=== PATIENT | male | born 1970 | race Caucasian/White ===

== ENCOUNTER 2021-08-29 15:36 | Inpatient (IN) | payer OTHER ==
[2021-08-29 16:22] VITALS: BMI 26.5
[2021-08-29] MEDS ORDERED: MAGNESIUM CITRATE 300 ML BOTTLE PO PRN (17:00)
[2021-08-29] MEDS ORDERED: MAG HYDROX/AL HYDROX/SIMETH 30 ML UNIT-DOSE CUP PO PRN (17:00)
[2021-08-29] MEDS ORDERED: BENZOCAINE/MENTHOL (CHLORASEPTIC ) LOZENGE MM PRN (17:00)
[2021-08-29] MEDS ORDERED: DICYCLOMINE HCL 10 MG CAPSULE PO PRN (17:00)
[2021-08-29] MEDS ORDERED: diazePAM 5 MG TABLET PO PRN (17:00)
[2021-08-29] MEDS ORDERED: diazePAM 5 MG TABLET PO ONE (17:00)
[2021-08-29] MEDS ORDERED: MAGNESIUM HYDROX 2400MG/30ML ORAL SUSPENSION 30 ML CUP PO PRN (17:00)
[2021-08-29] MEDS ORDERED: LOPERAMIDE HCL 2 MG CAPSULE PO PRN (17:00)
[2021-08-29] MEDS ORDERED: BISMUTH SUBSALICYLATE 524 MG/30 ML PO PRN (17:00)
[2021-08-29] MEDS ORDERED: ONDANSETRON *ODT* 4 MG TABLET SL PRN (17:00)
[2021-08-29] MEDS ORDERED: ACETAMINOPHEN 325 MG TABLET (FP) PO PRN ×2 (17:00)
[2021-08-29] MEDS: THIAMINE HCL 100 MG TABLET (FP) PO SCH (22:13)
[2021-08-29] MEDS: MELATONIN 5 MG TABLETS PO SCH (22:13)
[2021-08-29] MEDS: METHOCARBAMOL 500 MG TABLET PO PRN (22:13)
[2021-08-29] MEDS: diazePAM 5 MG TABLET PO SCH (22:14)
[2021-08-30] MEDS: diazePAM 5 MG TABLET PO SCH ×4 (05:34→22:02)
[2021-08-30] MEDS: PRENATAL VITAMINS W/ FOLIC ACID TABLET (FP) PO SCH (10:25)
[2021-08-30] MEDS: METHOCARBAMOL 500 MG TABLET PO PRN (10:26)
[2021-08-30 10:55] LABS: HEMATOCRIT 39.4 % (35.4-49); HEMOGLOBIN 13.2 GM/dL (11.7-16.9); MCH 29.9 pg (25.7-33.7); MCHC 33.4 g/dl (32.0-35.9); MEAN CELL VOLUME 89.6 fl (80-96); MEAN PLT VOLUME 8.5 fl (7.5-11.1); PLATELET COUNT 226 10^3/uL (134-434); RDW 18.7 % (11.9-15.9); WHITE BLOOD COUNT 5.3 K/mm3 (4.0-10.0)
[2021-08-30 11:00] LABS: BLOOD UREA NITROGEN 13.3 mg/dL (7-18)
[2021-08-30 11:03] LABS: ALBUMIN 3.3 g/dl (3.4-5.0); CREATININE 0.8 mg/dL (0.55-1.3)
[2021-08-30 11:04] LABS: BILIRUBIN,TOTAL 0.8 mg/dL (0.2-1)
[2021-08-30 11:05] LABS: TOT PROT 6.6 g/dl (6.4-8.2)
[2021-08-30] MEDS: IBUPROFEN 400 MG TABLET (FP) PO PRN (17:40)
[2021-08-30] MEDS: MELATONIN 5 MG TABLETS PO SCH (22:05)
[2021-08-31] MEDS: THIAMINE HCL 100 MG TABLET (FP) PO SCH ×2 (00:05→22:09)
[2021-08-31] MEDS: diazePAM 5 MG TABLET PO SCH ×2 (05:54→13:48)
[2021-08-31] MEDS: PRENATAL VITAMINS W/ FOLIC ACID TABLET (FP) PO SCH (10:13)
[2021-08-31] MEDS: IBUPROFEN 400 MG TABLET (FP) PO PRN ×2 (10:14→22:11)
[2021-08-31 10:29] LABS: PH,URINE 6.5 (5.0-8.0); URINE APPEARANCE CLEAR; URINE BILIRUBIN NEGATIVE (NEGATIVE); URINE COLOR YELLOW; URINE GLUCOSE (UA) NEGATIVE (NEGATIVE); URINE KETONE NEGATIVE (NEGATIVE); URINE LEUK ESTERASE NEGATIVE (NEGATIVE); URINE NITRITE NEGATIVE (NEGATIVE); URINE PROTEIN NEGATIVE (NEGATIVE); URINE UROBILINOGEN 0.2 mg/dL (0.2-1.0)
[2021-08-31] MEDS ORDERED: diazePAM 5 MG TABLET PO SCH (22:00)
[2021-08-31] MEDS: valACYclovir HCL 500 MG TABLET (FP) PO SCH (22:08)
[2021-08-31] MEDS: MELATONIN 5 MG TABLETS PO SCH (22:09)
[2021-09-01] MEDS ORDERED: diazePAM 5 MG TABLET PO SCH (06:00)
[2021-09-01] MEDS: PRENATAL VITAMINS W/ FOLIC ACID TABLET (FP) PO SCH (10:08)
[2021-09-01] MEDS: valACYclovir HCL 500 MG TABLET (FP) PO SCH (10:08)
[2021-09-01] MEDS: METHOCARBAMOL 500 MG TABLET PO PRN (10:08)
[2021-09-01 13:56] VITALS: BP 136/78; PULSE 96; TEMP 97.7
[2021-09-02] MEDS ORDERED: diazePAM 5 MG TABLET PO ONE (06:00)
== END 2021-09-01 14:05 | disposition other institution (70) | DRG 774 ==
LOC: YASAS 15:36 → Y6N 18:31
PROVIDERS: ADMIT Allergy & Immunology; ATTEND Surgery
PROC: HZ2ZZZZ Detoxification Services for Substance Abuse Treatment (ICD-10-PCS; principal; 2021-08-29)
DX: F10.230 Alcohol dependence with withdrawal, uncomplicated (principal); F14.20 Cocaine dependence, uncomplicated; F43.10 Post-traumatic stress disorder, unspecified; K64.9 Unspecified hemorrhoids; R30.0 Dysuria; Z87.891 Personal history of nicotine dependence; Z86.19 Personal history of other infectious and parasitic diseases; Z88.8 Allergy status to other drugs, medicaments and biological substances
CPT/HCPCS: 36415; 80053; 81003; 85027; 86593; 86780; 93005; 93010; C9803-CS; U0003; U0005

== ENCOUNTER 2021-09-01 14:18 | Inpatient (IN) | payer OTHER ==
[2021-09-01] MEDS ORDERED: MAG HYDROX/AL HYDROX/SIMETH 30 ML UNIT-DOSE CUP PO PRN (15:55)
[2021-09-01] MEDS ORDERED: P-EPHED 60MG/TRIPROLIDI 2.5MG TABLET PO PRN (15:55)
[2021-09-01] MEDS ORDERED: BENZOCAINE/MENTHOL (CHLORASEPTIC ) LOZENGE MM PRN (15:55)
[2021-09-01] MEDS ORDERED: MAGNESIUM HYDROX 2400MG/30ML ORAL SUSPENSION 30 ML CUP PO PRN (15:55)
[2021-09-01] MEDS ORDERED: ACETAMINOPHEN 325 MG TABLET (FP) PO PRN (15:55)
[2021-09-01] MEDS ORDERED: IBUPROFEN 400 MG TABLET (FP) PO PRN (15:55)
[2021-09-01] MEDS ORDERED: MAGNESIUM CITRATE 300 ML BOTTLE PO PRN (15:55)
[2021-09-01] MEDS ORDERED: LOPERAMIDE HCL 2 MG CAPSULE PO PRN (15:55)
[2021-09-01] MEDS ORDERED: guaiFENesin 200 MG/10 ML 10 ML UNIT-DOSE CUPS PO PRN (15:55)
[2021-09-01] MEDS: valACYclovir HCL 500 MG TABLET (FP) PO SCH (21:09)
[2021-09-01] MEDS: THIAMINE HCL 100 MG TABLET (FP) PO SCH (21:10)
[2021-09-01] MEDS: MELATONIN 5 MG TABLETS PO SCH (21:10)
[2021-09-02] MEDS: valACYclovir HCL 500 MG TABLET (FP) PO SCH ×2 (10:08→21:05)
[2021-09-02] MEDS: PRENATAL VITAMINS W/ FOLIC ACID TABLET (FP) PO SCH (10:08)
[2021-09-02] MEDS: THIAMINE HCL 100 MG TABLET (FP) PO SCH (21:05)
[2021-09-02] MEDS: hydrOXYzine PAMOATE 25 MG CAPSULE (FP) PO PRN (21:05)
[2021-09-02] MEDS: MELATONIN 5 MG TABLETS PO SCH (21:05)
[2021-09-03] MEDS: PRENATAL VITAMINS W/ FOLIC ACID TABLET (FP) PO SCH (09:44)
[2021-09-03] MEDS: valACYclovir HCL 500 MG TABLET (FP) PO SCH ×2 (09:44→21:26)
[2021-09-03] MEDS: THIAMINE HCL 100 MG TABLET (FP) PO SCH (21:25)
[2021-09-03] MEDS: MELATONIN 5 MG TABLETS PO SCH (21:25)
[2021-09-03] MEDS: hydrOXYzine PAMOATE 25 MG CAPSULE (FP) PO PRN (21:26)
[2021-09-04] MEDS: PRENATAL VITAMINS W/ FOLIC ACID TABLET (FP) PO SCH (09:38)
[2021-09-04] MEDS: valACYclovir HCL 500 MG TABLET (FP) PO SCH ×2 (09:38→21:06)
[2021-09-04] MEDS: THIAMINE HCL 100 MG TABLET (FP) PO SCH (21:06)
[2021-09-04] MEDS: hydrOXYzine PAMOATE 25 MG CAPSULE (FP) PO PRN (21:06)
[2021-09-04] MEDS: MELATONIN 5 MG TABLETS PO SCH (21:06)
[2021-09-05] MEDS: valACYclovir HCL 500 MG TABLET (FP) PO SCH ×2 (09:45→21:08)
[2021-09-05] MEDS: PRENATAL VITAMINS W/ FOLIC ACID TABLET (FP) PO SCH (09:45)
[2021-09-05] MEDS: THIAMINE HCL 100 MG TABLET (FP) PO SCH (21:09)
[2021-09-05] MEDS: hydrOXYzine PAMOATE 25 MG CAPSULE (FP) PO PRN (21:09)
[2021-09-05] MEDS: MELATONIN 5 MG TABLETS PO SCH (21:09)
[2021-09-06] MEDS: PRENATAL VITAMINS W/ FOLIC ACID TABLET (FP) PO SCH (09:44)
[2021-09-06] MEDS: valACYclovir HCL 500 MG TABLET (FP) PO SCH ×2 (09:44→21:14)
[2021-09-06] MEDS: hydrOXYzine PAMOATE 25 MG CAPSULE (FP) PO PRN (21:14)
[2021-09-06] MEDS: THIAMINE HCL 100 MG TABLET (FP) PO SCH (21:14)
[2021-09-06] MEDS: MELATONIN 5 MG TABLETS PO SCH (21:14)
[2021-09-07] MEDS: PRENATAL VITAMINS W/ FOLIC ACID TABLET (FP) PO SCH (10:03)
[2021-09-07] MEDS ORDERED: PENICILLIN G BENZATHINE 1,200,000 UNIT/2 ML PFS IM ONE (11:27)
[2021-09-07] MEDS: hydrOXYzine PAMOATE 25 MG CAPSULE (FP) PO PRN (21:05)
[2021-09-07] MEDS: MELATONIN 5 MG TABLETS PO SCH (21:05)
[2021-09-07] MEDS: THIAMINE HCL 100 MG TABLET (FP) PO SCH (21:05)
[2021-09-08] MEDS: PRENATAL VITAMINS W/ FOLIC ACID TABLET (FP) PO SCH (09:49)
[2021-09-08] MEDS: MELATONIN 5 MG TABLETS PO SCH (21:30)
[2021-09-08] MEDS: hydrOXYzine PAMOATE 25 MG CAPSULE (FP) PO PRN (21:30)
[2021-09-08] MEDS: THIAMINE HCL 100 MG TABLET (FP) PO SCH (21:30)
[2021-09-09] MEDS: PRENATAL VITAMINS W/ FOLIC ACID TABLET (FP) PO SCH (09:50)
[2021-09-09] MEDS: THIAMINE HCL 100 MG TABLET (FP) PO SCH (21:00)
[2021-09-09] MEDS: hydrOXYzine PAMOATE 25 MG CAPSULE (FP) PO PRN (21:00)
[2021-09-09] MEDS: MELATONIN 5 MG TABLETS PO SCH (21:00)
[2021-09-10] MEDS: PRENATAL VITAMINS W/ FOLIC ACID TABLET (FP) PO SCH (10:07)
[2021-09-10] MEDS: hydrOXYzine PAMOATE 25 MG CAPSULE (FP) PO PRN (21:09)
[2021-09-10] MEDS: MELATONIN 5 MG TABLETS PO SCH (21:09)
[2021-09-10] MEDS: THIAMINE HCL 100 MG TABLET (FP) PO SCH (21:09)
[2021-09-11] MEDS: PRENATAL VITAMINS W/ FOLIC ACID TABLET (FP) PO SCH (10:07)
[2021-09-11] MEDS: MELATONIN 5 MG TABLETS PO SCH (21:06)
[2021-09-11] MEDS: THIAMINE HCL 100 MG TABLET (FP) PO SCH (21:06)
[2021-09-11] MEDS: hydrOXYzine PAMOATE 25 MG CAPSULE (FP) PO PRN (21:06)
[2021-09-12] MEDS: MELATONIN 5 MG TABLETS PO SCH (21:05)
[2021-09-12] MEDS: hydrOXYzine PAMOATE 25 MG CAPSULE (FP) PO PRN (21:05)
[2021-09-12] MEDS: THIAMINE HCL 100 MG TABLET (FP) PO SCH (21:05)
[2021-09-12] MEDS: PRENATAL VITAMINS W/ FOLIC ACID TABLET (FP) PO SCH (21:06)
[2021-09-13] MEDS: MELATONIN 5 MG TABLETS PO SCH (21:07)
[2021-09-13] MEDS: hydrOXYzine PAMOATE 25 MG CAPSULE (FP) PO PRN (21:08)
[2021-09-13] MEDS: PRENATAL VITAMINS W/ FOLIC ACID TABLET (FP) PO SCH (21:08)
[2021-09-13] MEDS: THIAMINE HCL 100 MG TABLET (FP) PO SCH (21:08)
[2021-09-14] MEDS ORDERED: PENICILLIN G BENZATHINE 2,400,000 UNIT/4 ML PFS IM ONE (10:00)
[2021-09-14] MEDS: hydrOXYzine PAMOATE 25 MG CAPSULE (FP) PO PRN (21:02)
[2021-09-14] MEDS: PRENATAL VITAMINS W/ FOLIC ACID TABLET (FP) PO SCH (21:02)
[2021-09-14] MEDS: MELATONIN 5 MG TABLETS PO SCH (21:02)
[2021-09-14] MEDS: THIAMINE HCL 100 MG TABLET (FP) PO SCH (21:03)
[2021-09-15 07:06] VITALS: BP 110/70; PULSE 58; TEMP 97.3
[2021-09-21] MEDS ORDERED: PENICILLIN G BENZATHINE 2,400,000 UNIT/4 ML PFS IM ONE (10:00)
== END 2021-09-15 09:32 | disposition home or self-care (01) | DRG 772 ==
LOC: YASAS 14:18 → Y3W 14:19
PROVIDERS: ADMIT Allergy & Immunology; ATTEND Psychiatry & Neurology Pain Medicine
PROC: HZ42ZZZ Group Counseling for Substance Abuse Treatment, Cognitive-Behavioral (ICD-10-PCS; principal; 2021-09-01)
DX: F10.20 Alcohol dependence, uncomplicated (principal); F14.20 Cocaine dependence, uncomplicated; G47.00 Insomnia, unspecified; Z20.2 Contact with and (suspected) exposure to infections with a predominantly sexual mode of transmission; Z88.8 Allergy status to other drugs, medicaments and biological substances; Z87.891 Personal history of nicotine dependence

== ENCOUNTER 2021-10-30 18:13 | Emergency (ER) | payer OTHER ==
[2021-10-30 18:44] VITALS: TEMP 97.9; BMI 25.8
[2021-10-30] MEDS ORDERED: ONDANSETRON 4 MG/2 ML VIAL IVPUSH ONE (18:47)
[2021-10-30] MEDS ORDERED: SODIUM CHLORIDE 0.9% 500 ML INFUS.BAG IV ONE ×2 (18:47→19:40)
[2021-10-30] MEDS ORDERED: ONDANSETRON 4 MG/2 ML VIAL ONE (18:47)
[2021-10-30 22:04] LABS: BASO % 1.3 % (0-2.0); EOS % 0.4 % (0-4.5); HEMOGLOBIN 13.5 GM/dL (11.7-16.9); MCH 30.6 pg (25.7-33.7); MCHC 33.7 g/dl (32.0-35.9); MEAN CELL VOLUME 90.9 fl (80-96); MONO % 4.9 % (3.8-10.2); NEUT % 64.4 % (42.8-82.8); PLATELET COUNT 179 10^3/uL (134-434); RDW 15.5 % (11.9-15.9); WHITE BLOOD COUNT 6.3 K/mm3 (4.0-10.0)
[2021-10-30 22:15] LABS: INR 0.94 (0.83-1.09); PROTHROMBIN TIME (PATIENT) 10.8 SEC (9.7-13.0)
[2021-10-30 22:17] LABS: ACTIVATED PTT 29.2 SECONDS (25.2-36.5)
[2021-10-30] MEDS ORDERED: ACETAMINOPHEN 1000 MG/100 ML BAG IVPB ONE (23:46)
[2021-10-30] MEDS ORDERED: ACETAMINOPHEN INJECTION 100 ML IVPB ONE (23:51)
[2021-10-31 00:12] VITALS: BP 109/62; PULSE 68; RESP 18
[2021-10-31 00:18] LABS: CALCIUM 7.8 mg/dL (8.5-10.1)
[2021-10-31 00:19] LABS: ALBUMIN 3.4 g/dl (3.4-5.0); BLOOD UREA NITROGEN 7.4 mg/dL (7-18)
[2021-10-31 00:22] LABS: CREATININE 0.7 mg/dL (0.55-1.3)
[2021-10-31 00:23] LABS: BILIRUBIN,TOTAL 0.6 mg/dL (0.2-1)
[2021-10-31 00:24] LABS: TOT PROT 6.6 g/dl (6.4-8.2)
== END 2021-10-31 00:35 | disposition home or self-care (01) ==
LOC: JER 18:13
PROC: 3E033NZ Introduction of Analgesics, Hypnotics, Sedatives into Peripheral Vein, Percutaneous Approach (ICD-10-PCS; principal; 2021-10-30)
PROC: 3E033GC Introduction of Other Therapeutic Substance into Peripheral Vein, Percutaneous Approach (ICD-10-PCS; 2021-10-30)
DX: F10.920 Alcohol use, unspecified with intoxication, uncomplicated (principal)
CPT/HCPCS: 36415; 70450-TC; 71045-TC-FY; 72125-TC; 80053; 80307; 82962; 83690; 84484; 85025; 85610; 85730; 86850; 86900; 86901; 93005; 93010; 99285-25

== ENCOUNTER 2021-10-31 01:41 | Inpatient (IN) | payer OTHER ==
[2021-10-31 03:32] VITALS: BMI 26.4
[2021-10-31] MEDS ORDERED: NALOXONE HCL (KLOXXADO) 8 MG SPRAY NS PRN (08:17)
[2021-10-31] MEDS ORDERED: ONDANSETRON *ODT* 4 MG TABLET SL PRN (08:17)
[2021-10-31] MEDS ORDERED: DICYCLOMINE HCL 10 MG CAPSULE PO PRN (08:17)
[2021-10-31] MEDS ORDERED: MAG HYDROX/AL HYDROX/SIMETH 30 ML UNIT-DOSE CUP PO PRN (08:17)
[2021-10-31] MEDS ORDERED: LOPERAMIDE HCL 2 MG CAPSULE PO PRN (08:17)
[2021-10-31] MEDS ORDERED: IBUPROFEN 600 MG TABLET (FP) PO PRN (08:17)
[2021-10-31] MEDS ORDERED: MAGNESIUM CITRATE 300 ML BOTTLE PO PRN (08:17)
[2021-10-31] MEDS ORDERED: BISMUTH SUBSALICYLATE 262 MG/15 ML BTL PO PRN (08:17)
[2021-10-31] MEDS ORDERED: IBUPROFEN 400 MG TABLET (FP) PO PRN (08:17)
[2021-10-31] MEDS ORDERED: chlordiazePOXIDE HCL 25 MG CAPSULE PO PRN (08:17)
[2021-10-31] MEDS ORDERED: MAGNESIUM HYDROX 2400MG/30ML ORAL SUSPENSION 30 ML CUP PO PRN (08:17)
[2021-10-31] MEDS ORDERED: BENZOCAINE/MENTHOL (CHLORASEPTIC ) LOZENGE MM PRN (08:17)
[2021-10-31] MEDS ORDERED: NICOTINE 10 MG CARTRIDGE (INHALER) IH PRN (08:17)
[2021-10-31] MEDS ORDERED: ACETAMINOPHEN 325 MG TABLET (FP) PO PRN (08:17)
[2021-10-31] MEDS ORDERED: hydrOXYzine PAMOATE 25 MG CAPSULE (FP) PO PRN (08:23)
[2021-10-31] MEDS ORDERED: hydrOXYzine PAMOATE 25 MG CAPSULE (FP) PO ONE (09:24)
[2021-10-31] MEDS ORDERED: chlordiazePOXIDE HCL 25 MG CAPSULE ONE (09:24)
[2021-10-31] MEDS: hydrOXYzine PAMOATE 25 MG CAPSULE (FP) PO SCH ×4 (09:27→22:18)
[2021-10-31] MEDS: PRENATAL VITAMINS W/ FOLIC ACID TABLET (FP) PO SCH (11:00)
[2021-10-31] MEDS: chlordiazePOXIDE HCL 25 MG CAPSULE PO SCH ×3 (11:01→22:18)
[2021-10-31 13:47] LABS: HEMATOCRIT 36.1 % (35.4-49); HEMOGLOBIN 12.3 GM/dL (11.7-16.9); MCH 31.1 pg (25.7-33.7); MCHC 34.2 g/dl (32.0-35.9); MEAN CELL VOLUME 90.9 fl (80-96); MEAN PLT VOLUME 8.3 fl (7.5-11.1); PLATELET COUNT 167 10^3/uL (134-434); RBC 3.97 M/mm3 (4.00-5.60); RDW 15.3 % (11.9-15.9); WHITE BLOOD COUNT 4.9 K/mm3 (4.0-10.0)
[2021-10-31 13:52] LABS: CALCIUM 7.6 mg/dL (8.5-10.1)
[2021-10-31 13:53] LABS: ALBUMIN 3.1 g/dl (3.4-5.0); BLOOD UREA NITROGEN 10.8 mg/dL (7-18)
[2021-10-31 13:55] LABS: CREATININE 0.7 mg/dL (0.55-1.3)
[2021-10-31 13:56] LABS: BILIRUBIN,TOTAL 0.5 mg/dL (0.2-1); TOT PROT 5.9 g/dl (6.4-8.2)
[2021-10-31] MEDS ORDERED: POTASSIUM CHLORIDE ORAL LIQUID 20 MEQ/15 ML PO ONE (15:19)
[2021-10-31] MEDS: THIAMINE HCL 100 MG TABLET (FP) PO SCH (22:17)
[2021-10-31] MEDS: POTASSIUM CHLORIDE ORAL LIQUID 20 MEQ/15 ML PO SCH (22:17)
[2021-10-31] MEDS: MELATONIN 5 MG TABLETS PO SCH (22:18)
[2021-11-01] MEDS: chlordiazePOXIDE HCL 25 MG CAPSULE PO SCH ×4 (05:55→22:35)
[2021-11-01] MEDS: hydrOXYzine PAMOATE 25 MG CAPSULE (FP) PO SCH ×5 (05:56→22:35)
[2021-11-01] MEDS: PRENATAL VITAMINS W/ FOLIC ACID TABLET (FP) PO SCH (10:40)
[2021-11-01] MEDS: POTASSIUM CHLORIDE ORAL LIQUID 20 MEQ/15 ML PO SCH ×2 (10:40→22:35)
[2021-11-01] MEDS: METHOCARBAMOL 500 MG TABLET PO PRN (10:40)
[2021-11-01 11:15] LABS: CALCIUM 8.7 mg/dL (8.5-10.1)
[2021-11-01] MEDS: THIAMINE HCL 100 MG TABLET (FP) PO SCH (22:35)
[2021-11-01] MEDS: MELATONIN 5 MG TABLETS PO SCH (22:36)
[2021-11-02] MEDS: hydrOXYzine PAMOATE 25 MG CAPSULE (FP) PO SCH ×5 (05:27→22:15)
[2021-11-02] MEDS: chlordiazePOXIDE HCL 25 MG CAPSULE PO SCH ×4 (05:28→22:14)
[2021-11-02] MEDS: PRENATAL VITAMINS W/ FOLIC ACID TABLET (FP) PO SCH (10:27)
[2021-11-02] MEDS: METHOCARBAMOL 500 MG TABLET PO PRN ×2 (10:28→22:15)
[2021-11-02] MEDS: THIAMINE HCL 100 MG TABLET (FP) PO SCH (22:15)
[2021-11-02] MEDS: MELATONIN 5 MG TABLETS PO SCH (22:16)
[2021-11-03] MEDS ORDERED: chlordiazePOXIDE HCL 10 MG CAPSULE PO PRN
[2021-11-03] MEDS: chlordiazePOXIDE HCL 10 MG CAPSULE PO SCH ×4 (06:03→22:17)
[2021-11-03] MEDS: hydrOXYzine PAMOATE 25 MG CAPSULE (FP) PO SCH ×5 (06:04→22:17)
[2021-11-03] MEDS: PRENATAL VITAMINS W/ FOLIC ACID TABLET (FP) PO SCH (10:35)
[2021-11-03] MEDS: ACETAMINOPHEN 325 MG TABLET (FP) PO PRN (10:37)
[2021-11-03] MEDS: METHOCARBAMOL 500 MG TABLET PO PRN (22:17)
[2021-11-03] MEDS: THIAMINE HCL 100 MG TABLET (FP) PO SCH (22:18)
[2021-11-03] MEDS: MELATONIN 5 MG TABLETS PO SCH (22:18)
[2021-11-04] MEDS ORDERED: chlordiazePOXIDE HCL 10 MG CAPSULE PO SCH (05:00)
[2021-11-04] MEDS: hydrOXYzine PAMOATE 25 MG CAPSULE (FP) PO SCH ×2 (05:42→10:04)
[2021-11-04] MEDS: PRENATAL VITAMINS W/ FOLIC ACID TABLET (FP) PO SCH (10:04)
[2021-11-04] MEDS: ACETAMINOPHEN 325 MG TABLET (FP) PO PRN (10:06)
[2021-11-04] MEDS ORDERED: chlordiazePOXIDE HCL 10 MG CAPSULE PO ONE (13:00)
[2021-11-04 17:15] VITALS: BP 129/75; PULSE 93; RESP 18; TEMP 98.3
[2021-11-05] MEDS ORDERED: chlordiazePOXIDE HCL 10 MG CAPSULE PO ONE (05:00)
== END 2021-11-04 17:20 | disposition other institution (70) | DRG 775 ==
LOC: YASAS 01:41 → SUATTDRO 01:41 → Y6N 09:39
PROVIDERS: ADMIT Allergy & Immunology; ATTEND Surgery
PROC: HZ2ZZZZ Detoxification Services for Substance Abuse Treatment (ICD-10-PCS; principal; 2021-10-31)
DX: F10.230 Alcohol dependence with withdrawal, uncomplicated (principal); Z87.891 Personal history of nicotine dependence; Z88.8 Allergy status to other drugs, medicaments and biological substances
CPT/HCPCS: 36415; 80053; 82310; 84132; 84450; 84460; 85027; 86593; 86780; 87811; C9803-CS; U0003; U0005

== ENCOUNTER 2021-11-04 16:41 | Inpatient (IN) | payer OTHER ==
[2021-11-04] MEDS ORDERED: guaiFENesin 200 MG/10 ML 10 ML UNIT-DOSE CUPS PO PRN (19:02)
[2021-11-04] MEDS ORDERED: MAGNESIUM CITRATE 300 ML BOTTLE PO PRN (19:02)
[2021-11-04] MEDS ORDERED: ACETAMINOPHEN 325 MG TABLET (FP) PO PRN (19:02)
[2021-11-04] MEDS ORDERED: MAGNESIUM HYDROX 2400MG/30ML ORAL SUSPENSION 30 ML CUP PO PRN (19:02)
[2021-11-04] MEDS ORDERED: IBUPROFEN 400 MG TABLET (FP) PO PRN (19:02)
[2021-11-04] MEDS ORDERED: MAG HYDROX/AL HYDROX/SIMETH 30 ML UNIT-DOSE CUP PO PRN (19:02)
[2021-11-04] MEDS ORDERED: P-EPHED 60MG/TRIPROLIDI 2.5MG TABLET PO PRN (19:02)
[2021-11-04] MEDS ORDERED: LOPERAMIDE HCL 2 MG CAPSULE PO PRN (19:02)
[2021-11-04] MEDS ORDERED: BENZOCAINE/MENTHOL (CHLORASEPTIC ) LOZENGE MM PRN (19:02)
[2021-11-04] MEDS: THIAMINE HCL 100 MG TABLET (FP) PO SCH (21:24)
[2021-11-04] MEDS ORDERED: MELATONIN 5 MG TABLETS PO SCH (22:00)
[2021-11-05] MEDS: PRENATAL VITAMINS W/ FOLIC ACID TABLET (FP) PO SCH (10:08)
[2021-11-05] MEDS: FLUoxetine HCL 20 MG CAPSULE PO SCH (10:09)
[2021-11-05] MEDS: THIAMINE HCL 100 MG TABLET (FP) PO SCH (21:09)
[2021-11-05] MEDS: hydrOXYzine PAMOATE 50 MG CAPSULE (FP) PO PRN (21:10)
[2021-11-06] MEDS: PRENATAL VITAMINS W/ FOLIC ACID TABLET (FP) PO SCH (09:47)
[2021-11-06] MEDS: FLUoxetine HCL 20 MG CAPSULE PO SCH (09:47)
[2021-11-06] MEDS: THIAMINE HCL 100 MG TABLET (FP) PO SCH (21:20)
[2021-11-06] MEDS: hydrOXYzine PAMOATE 50 MG CAPSULE (FP) PO PRN (21:20)
[2021-11-07] MEDS: PRENATAL VITAMINS W/ FOLIC ACID TABLET (FP) PO SCH (09:50)
[2021-11-07] MEDS: FLUoxetine HCL 20 MG CAPSULE PO SCH (09:50)
[2021-11-07] MEDS: hydrOXYzine PAMOATE 50 MG CAPSULE (FP) PO PRN (21:08)
[2021-11-07] MEDS: THIAMINE HCL 100 MG TABLET (FP) PO SCH (21:08)
[2021-11-08] MEDS: PRENATAL VITAMINS W/ FOLIC ACID TABLET (FP) PO SCH (09:47)
[2021-11-08] MEDS: FLUoxetine HCL 20 MG CAPSULE PO SCH (09:48)
[2021-11-08] MEDS: hydrOXYzine PAMOATE 50 MG CAPSULE (FP) PO PRN (21:08)
[2021-11-08] MEDS: THIAMINE HCL 100 MG TABLET (FP) PO SCH (21:08)
[2021-11-09] MEDS: PRENATAL VITAMINS W/ FOLIC ACID TABLET (FP) PO SCH (10:06)
[2021-11-09] MEDS: FLUoxetine HCL 20 MG CAPSULE PO SCH (10:06)
[2021-11-09] MEDS: hydrOXYzine PAMOATE 50 MG CAPSULE (FP) PO PRN (21:06)
[2021-11-09] MEDS: THIAMINE HCL 100 MG TABLET (FP) PO SCH (21:06)
[2021-11-10] MEDS: PRENATAL VITAMINS W/ FOLIC ACID TABLET (FP) PO SCH (09:38)
[2021-11-10] MEDS: FLUoxetine HCL 20 MG CAPSULE PO SCH (09:38)
[2021-11-10] MEDS: THIAMINE HCL 100 MG TABLET (FP) PO SCH (21:03)
[2021-11-10] MEDS: hydrOXYzine PAMOATE 50 MG CAPSULE (FP) PO PRN (21:04)
[2021-11-11] MEDS: FLUoxetine HCL 20 MG CAPSULE PO SCH (10:29)
[2021-11-11] MEDS: PRENATAL VITAMINS W/ FOLIC ACID TABLET (FP) PO SCH (10:29)
[2021-11-11] MEDS: THIAMINE HCL 100 MG TABLET (FP) PO SCH (21:15)
[2021-11-11] MEDS: hydrOXYzine PAMOATE 50 MG CAPSULE (FP) PO PRN (21:15)
[2021-11-12] MEDS: PRENATAL VITAMINS W/ FOLIC ACID TABLET (FP) PO SCH (10:23)
[2021-11-12] MEDS: FLUoxetine HCL 20 MG CAPSULE PO SCH (10:23)
[2021-11-12] MEDS: PSYLLIUM 5.85 GM PACKET PO SCH (13:12)
[2021-11-12] MEDS: hydrOXYzine PAMOATE 50 MG CAPSULE (FP) PO PRN (21:12)
[2021-11-12] MEDS: THIAMINE HCL 100 MG TABLET (FP) PO SCH (21:12)
[2021-11-13] MEDS: FLUoxetine HCL 20 MG CAPSULE PO SCH (09:51)
[2021-11-13] MEDS: PRENATAL VITAMINS W/ FOLIC ACID TABLET (FP) PO SCH (09:52)
[2021-11-13] MEDS: PSYLLIUM 5.85 GM PACKET PO SCH (09:52)
[2021-11-13] MEDS: THIAMINE HCL 100 MG TABLET (FP) PO SCH (21:18)
[2021-11-13] MEDS: hydrOXYzine PAMOATE 50 MG CAPSULE (FP) PO PRN (21:18)
[2021-11-14] MEDS: PRENATAL VITAMINS W/ FOLIC ACID TABLET (FP) PO SCH (09:48)
[2021-11-14] MEDS: FLUoxetine HCL 20 MG CAPSULE PO SCH (09:48)
[2021-11-14] MEDS: PSYLLIUM 5.85 GM PACKET PO SCH (09:48)
[2021-11-14] MEDS: THIAMINE HCL 100 MG TABLET (FP) PO SCH (21:05)
[2021-11-14] MEDS: hydrOXYzine PAMOATE 50 MG CAPSULE (FP) PO PRN (21:05)
[2021-11-15] MEDS: PRENATAL VITAMINS W/ FOLIC ACID TABLET (FP) PO SCH (09:31)
[2021-11-15] MEDS: FLUoxetine HCL 20 MG CAPSULE PO SCH (09:31)
[2021-11-15] MEDS: PSYLLIUM 5.85 GM PACKET PO SCH (09:31)
[2021-11-15] MEDS: THIAMINE HCL 100 MG TABLET (FP) PO SCH (21:12)
[2021-11-15] MEDS: hydrOXYzine PAMOATE 50 MG CAPSULE (FP) PO PRN (21:13)
[2021-11-16] MEDS: PRENATAL VITAMINS W/ FOLIC ACID TABLET (FP) PO SCH (09:42)
[2021-11-16] MEDS: PSYLLIUM 5.85 GM PACKET PO SCH (09:42)
[2021-11-16] MEDS: FLUoxetine HCL 20 MG CAPSULE PO SCH (09:44)
[2021-11-16] MEDS: THIAMINE HCL 100 MG TABLET (FP) PO SCH (21:14)
[2021-11-16] MEDS: hydrOXYzine PAMOATE 50 MG CAPSULE (FP) PO PRN (21:15)
[2021-11-17] MEDS: PRENATAL VITAMINS W/ FOLIC ACID TABLET (FP) PO SCH (09:55)
[2021-11-17] MEDS: PSYLLIUM 5.85 GM PACKET PO SCH (09:55)
[2021-11-17] MEDS: FLUoxetine HCL 20 MG CAPSULE PO SCH (09:55)
[2021-11-17] MEDS: ACYCLOVIR 200 MG CAPSULE PO SCH (14:28)
[2021-11-17] MEDS: THIAMINE HCL 100 MG TABLET (FP) PO SCH (21:14)
[2021-11-17] MEDS: hydrOXYzine PAMOATE 50 MG CAPSULE (FP) PO PRN (21:14)
[2021-11-18] MEDS: FLUoxetine HCL 20 MG CAPSULE PO SCH (10:02)
[2021-11-18] MEDS: ACYCLOVIR 200 MG CAPSULE PO SCH (10:02)
[2021-11-18] MEDS: PRENATAL VITAMINS W/ FOLIC ACID TABLET (FP) PO SCH (10:02)
[2021-11-18] MEDS: PSYLLIUM 5.85 GM PACKET PO SCH (10:03)
[2021-11-18] MEDS: hydrOXYzine PAMOATE 50 MG CAPSULE (FP) PO PRN (21:19)
[2021-11-18] MEDS: THIAMINE HCL 100 MG TABLET (FP) PO SCH (21:19)
[2021-11-19] MEDS: FLUoxetine HCL 20 MG CAPSULE PO SCH (09:55)
[2021-11-19] MEDS: PRENATAL VITAMINS W/ FOLIC ACID TABLET (FP) PO SCH (09:55)
[2021-11-19] MEDS: ACYCLOVIR 200 MG CAPSULE PO SCH (09:55)
[2021-11-19] MEDS: PSYLLIUM 5.85 GM PACKET PO SCH (09:56)
[2021-11-19] MEDS: hydrOXYzine PAMOATE 50 MG CAPSULE (FP) PO PRN (21:12)
[2021-11-19] MEDS: THIAMINE HCL 100 MG TABLET (FP) PO SCH (21:12)
[2021-11-20] MEDS: PRENATAL VITAMINS W/ FOLIC ACID TABLET (FP) PO SCH (10:03)
[2021-11-20] MEDS: PSYLLIUM 5.85 GM PACKET PO SCH (10:04)
[2021-11-20] MEDS: ACYCLOVIR 200 MG CAPSULE PO SCH (10:04)
[2021-11-20] MEDS: FLUoxetine HCL 20 MG CAPSULE PO SCH (11:35)
[2021-11-20] MEDS: hydrOXYzine PAMOATE 50 MG CAPSULE (FP) PO PRN (21:18)
[2021-11-20] MEDS: THIAMINE HCL 100 MG TABLET (FP) PO SCH (21:18)
[2021-11-21] MEDS: FLUoxetine HCL 20 MG CAPSULE PO SCH (09:54)
[2021-11-21] MEDS: PSYLLIUM 5.85 GM PACKET PO SCH (09:54)
[2021-11-21] MEDS: PRENATAL VITAMINS W/ FOLIC ACID TABLET (FP) PO SCH (09:54)
[2021-11-21] MEDS: ACYCLOVIR 200 MG CAPSULE PO SCH (09:55)
[2021-11-21] MEDS: THIAMINE HCL 100 MG TABLET (FP) PO SCH (21:18)
[2021-11-21] MEDS: hydrOXYzine PAMOATE 50 MG CAPSULE (FP) PO PRN (21:18)
[2021-11-22 07:28] VITALS: BP 110/71; PULSE 64; RESP 18; TEMP 97.7
[2021-11-22] MEDS: FLUoxetine HCL 20 MG CAPSULE PO SCH (09:04)
[2021-11-22] MEDS: PRENATAL VITAMINS W/ FOLIC ACID TABLET (FP) PO SCH (09:04)
[2021-11-22] MEDS: PSYLLIUM 5.85 GM PACKET PO SCH (09:05)
[2021-11-22] MEDS: ACYCLOVIR 200 MG CAPSULE PO SCH (09:06)
== END 2021-11-22 09:14 | disposition home or self-care (01) | DRG 772 ==
LOC: YASAS 16:41 → Y5N 16:42
PROVIDERS: ADMIT Allergy & Immunology; ATTEND Allergy & Immunology
PROC: HZ42ZZZ Group Counseling for Substance Abuse Treatment, Cognitive-Behavioral (ICD-10-PCS; principal; 2021-11-04)
DX: F10.20 Alcohol dependence, uncomplicated (principal); F14.20 Cocaine dependence, uncomplicated; F10.282 Alcohol dependence with alcohol-induced sleep disorder; F43.10 Post-traumatic stress disorder, unspecified; B00.9 Herpesviral infection, unspecified; Z20.2 Contact with and (suspected) exposure to infections with a predominantly sexual mode of transmission; Z87.891 Personal history of nicotine dependence

== ENCOUNTER 2022-11-28 16:24 | Observation (INO) | payer OTHER ==
[2022-11-28] MEDS ORDERED: LORazepam 2 MG/ML SDV VIAL IM ONE (16:27)
[2022-11-28] MEDS ORDERED: HALOPERIDOL LACTATE 5 MG/ML IM ONE ×2 (16:27→16:29)
[2022-11-28] MEDS ORDERED: FOLIC ACID INJECTION - 1 MG, THIAMINE HCL 100 MG, MULTIVIT INJECTION ADULT 10 ML in SOD... IVPB ONE (16:57)
[2022-11-28] MEDS ORDERED: THIAMINE HCL 200 MG/2 ML VIAL IVPB ONE (17:01)
[2022-11-28] MEDS ORDERED: THIAMINE HCL 200 MG/2 ML VIAL ONE (17:21)
[2022-11-28 17:30] LABS: BASO % 1.5 % (0-2.0); EOS % 0.9 % (0-4.5); HEMATOCRIT 41.1 % (35.4-49); HEMOGLOBIN 13.8 GM/dL (11.7-16.9); LYMPH % 42.9 % (8-40); MCH 31.9 pg (25.7-33.7); MCHC 33.5 g/dl (32.0-35.9); MEAN PLT VOLUME 7.7 fl (7.5-11.1); MONO % 7.1 % (3.8-10.2); NEUT % 47.6 % (42.8-82.8); PLATELET COUNT 260 10^3/uL (134-434); RBC 4.32 M/mm3 (4.00-5.60); RDW 16.3 % (11.9-15.9)
[2022-11-28 17:57] LABS: POTASSIUM 3.8 mmol/L (3.5-5.1)
[2022-11-28 17:59] LABS: BLOOD UREA NITROGEN 12.5 mg/dL (7-18); CALCIUM 8.2 mg/dL (8.5-10.1); MAGNESIUM 2.7 mg/dL (1.8-2.4)
[2022-11-28 18:00] LABS: ALBUMIN 3.8 g/dl (3.4-5.0)
[2022-11-28 18:03] LABS: CREATININE 0.7 mg/dL (0.55-1.3)
[2022-11-28 18:04] LABS: BILIRUBIN,TOTAL 0.4 mg/dL (0.2-1); TOT PROT 7.2 g/dl (6.4-8.2)
[2022-11-29] MEDS ORDERED: DOCUSATE SODIUM 100 MG CAPSULE (FP) PO PRN (02:45)
[2022-11-29] MEDS ORDERED: hydrOXYzine PAMOATE 25 MG CAPSULE (FP) PO PRN ×2 (02:52→04:58)
[2022-11-29] MEDS ORDERED: ONDANSETRON 4 MG/2 ML VIAL IVPUSH PRN (02:55)
[2022-11-29 03:23] LABS: POTASSIUM 3.9 mmol/L (3.5-5.1)
[2022-11-29 03:25] LABS: CALCIUM 9.1 mg/dL (8.5-10.1)
[2022-11-29 03:26] LABS: BLOOD UREA NITROGEN 19.1 mg/dL (7-18)
[2022-11-29 03:29] LABS: CREATININE 0.5 mg/dL (0.55-1.3); PHOSPHOROUS 4.5 mg/dL (2.5-4.9)
[2022-11-29] MEDS ORDERED: LORazepam 1 MG TABLET ONE ×2 (03:43→09:30)
[2022-11-29] MEDS: LORazepam 1 MG TABLET PO PRN ×2 (03:47→21:50)
[2022-11-29] MEDS ORDERED: BISMUTH SUBSALICYLATE 262 MG/15 ML BTL PO PRN (04:50)
[2022-11-29] MEDS ORDERED: LOPERAMIDE HCL 2 MG CAPSULE PO PRN (04:50)
[2022-11-29] MEDS ORDERED: MAG HYDROX/AL HYDROX/SIMETH 30 ML UNIT-DOSE CUP PO PRN (04:50)
[2022-11-29] MEDS ORDERED: MELATONIN 5 MG TABLETS PO PRN (04:50)
[2022-11-29] MEDS ORDERED: LORazepam 1 MG TABLET PO SCH (05:00)
[2022-11-29] MEDS: LORazepam 1 MG TABLET PO SCH ×3 (05:28→16:50)
[2022-11-29] MEDS ORDERED: hydrOXYzine PAMOATE 25 MG CAPSULE (FP) PO ONE (05:58)
[2022-11-29 06:18] LABS: BASO % 0.6 % (0-2.0); EOS % 0.5 % (0-4.5); HEMATOCRIT 39.2 % (35.4-49); LYMPH % 18.5 % (8-40); MCH 31.4 pg (25.7-33.7); MCHC 33.2 g/dl (32.0-35.9); MEAN CELL VOLUME 94.7 fl (80-96); MEAN PLT VOLUME 7.8 fl (7.5-11.1); NEUT % 72.4 % (42.8-82.8); PLATELET COUNT 248 10^3/uL (134-434); RBC 4.13 M/mm3 (4.00-5.60); RDW 16.5 % (11.9-15.9); WHITE BLOOD COUNT 11.6 K/mm3 (4.0-10.0)
[2022-11-29 06:27] LABS: INR 0.93 (0.83-1.09); PROTHROMBIN TIME (PATIENT) 10.8 SEC (9.7-13.0)
[2022-11-29 06:30] LABS: ACTIVATED PTT 27.3 SECONDS (25.2-36.5)
[2022-11-29] MEDS ORDERED: TAMSULOSIN HCL 0.4 MG CAP ONE (07:41)
[2022-11-29] MEDS: TAMSULOSIN HCL 0.4 MG CAP PO SCH (07:43)
[2022-11-29 13:22] VITALS: BMI 26.6
[2022-11-30] MEDS ORDERED: LORazepam 1 MG TABLET PO SCH (05:00)
[2022-11-30] MEDS ORDERED: LORazepam 2 MG/ML SDV VIAL IVPUSH PRN (08:00)
[2022-11-30] MEDS: TAMSULOSIN HCL 0.4 MG CAP PO SCH (09:11)
[2022-11-30 09:50] LABS: BASO % 0.3 % (0-2.0); HEMATOCRIT 41.6 % (35.4-49); HEMOGLOBIN 14.1 GM/dL (11.7-16.9); LYMPH % 12.3 % (8-40); MCH 31.4 pg (25.7-33.7); MCHC 33.9 g/dl (32.0-35.9); MEAN CELL VOLUME 92.5 fl (80-96); MEAN PLT VOLUME 7.8 fl (7.5-11.1); MONO % 4.9 % (3.8-10.2); NEUT % 81.5 % (42.8-82.8); PLATELET COUNT 252 10^3/uL (134-434); RDW 16.3 % (11.9-15.9); WHITE BLOOD COUNT 11.2 K/mm3 (4.0-10.0)
[2022-11-30] MEDS ORDERED: FOLIC ACID 1 MG TABLET (FP) PO SCH (10:00)
[2022-11-30] MEDS ORDERED: MULTIVITAMINS (DAILY MVI) TABLET (FP) PO SCH (10:00)
[2022-11-30] MEDS ORDERED: THIAMINE HCL 100 MG TABLET (FP) PO SCH (10:00)
[2022-11-30 10:11] LABS: POTASSIUM 4.3 mmol/L (3.5-5.1)
[2022-11-30 10:17] LABS: ALBUMIN 3.7 g/dl (3.4-5.0); BLOOD UREA NITROGEN 10.1 mg/dL (7-18)
[2022-11-30 10:20] LABS: BILIRUBIN,TOTAL 1.3 mg/dL (0.2-1); CREATININE 0.7 mg/dL (0.55-1.3)
[2022-11-30 10:21] LABS: TOT PROT 7.1 g/dl (6.4-8.2)
[2022-11-30 16:18] VITALS: BP 122/80; PULSE 84; RESP 16; TEMP 98.4
[2022-12-01] MEDS ORDERED: LORazepam 0.5 MG TABLET PO PRN
[2022-12-01] MEDS ORDERED: LORazepam 0.5 MG TABLET PO SCH (05:00)
[2022-12-02] MEDS ORDERED: LORazepam 0.5 MG TABLET PO ONE (05:00)
== END 2022-11-30 17:02 | disposition home or self-care (01) ==
LOC: JER 16:24 → JERBED 11-29 02:16 → J5S 11-29 11:21
PROVIDERS: ADMIT Internal Medicine; ATTEND Internal Medicine
PROC: 3E023GC Introduction of Other Therapeutic Substance into Muscle, Percutaneous Approach (ICD-10-PCS; principal; 2022-11-29)
PROC: 3E033GC Introduction of Other Therapeutic Substance into Peripheral Vein, Percutaneous Approach (ICD-10-PCS; 2022-11-29)
PROC: 3E023GC Introduction of Other Therapeutic Substance into Muscle, Percutaneous Approach (ICD-10-PCS; 2022-11-29)
DX: F10.121 Alcohol abuse with intoxication delirium (principal); F43.10 Post-traumatic stress disorder, unspecified; N40.0 Benign prostatic hyperplasia without lower urinary tract symptoms; Z87.891 Personal history of nicotine dependence; Z88.8 Allergy status to other drugs, medicaments and biological substances; R51.9 Headache, unspecified; F32.A Depression, unspecified; R35.0 Frequency of micturition; F90.9 Attention-deficit hyperactivity disorder, unspecified type; R74.01 Elevation of levels of liver transaminase levels; F14.21 Cocaine dependence, in remission
CPT/HCPCS: 36415; 80048; 80053; 80307; 82962; 83735; 84100; 84443; 85025; 85610; 85730; 93005; 93010; 96365; 96372; 99285-25; G0378